=== PATIENT | female | born 1995 | race African-American/Black ===

== ENCOUNTER 2017-08-30 16:22 | Emergency (ER) | payer OTHER, MEDICAID ==
[~2017-08-30] VITALS: Ht 157.5 cm; Wt 121.0 kg
[2017-08-30 16:38] VITALS: BP 143/82
== END 2017-08-30 22:00 | disposition left against medical advice (07) ==
LOC: ER 16:22
DX: R07.9 Chest pain, unspecified (principal)
CPT/HCPCS: 81025; 93005; 99283